=== PATIENT | female | born 2000 | race Caucasian/White ===

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

== ENCOUNTER → 2019-06-28 | Outpatient (CLI) | payer OTHER ==
[2019-06-30 06:02] LABS: HIV SCREEN 4TH GENERATION WRFX Non Reactive (Non Reactive)
[2019-07-01 05:08] LABS: NEISSERIA GONORRHOEAE, NAA Negative (Negative)
[2019-07-01 14:39] LABS: CHLAMYDIA TRACHOMATIS, NAA Negative
== END | disposition home or self-care (01) ==
LOC: LAB SHORT 18:38 → LAB 18:38 → LAB FUT 06-28 15:05
PROVIDERS: Nurse Practitioner Family
DX: Z91.410 Personal history of adult physical and sexual abuse (principal)
CPT/HCPCS: 86592; 87389; 87491; 87591